=== PATIENT | female | born 1935 | race Caucasian/White ===

== ENCOUNTER → 2016-08-30 | Outpatient (CLI) | payer MEDICARE, BC ==
[~2016-08-30] MED LIST: ACET500C46 PO; CALC-586 PO; CARV3.12 PO; CHOL200035 PO; GABA-338 PO; HYDR-3989 PO; LEVO100T81 PO; LISI-625 PO; MAGN400C PO; MULT-806 PO; OMEG300C PO; ONDA8TAB PO; WARF1TAB6 PO
[2016-08-30 15:06] LABS: BASOPHILS % (AUTO) 0.5 % (0-2); EOSINOPHILS # (AUTO) 0.1 T/MM3 (0-0.5); EOSINOPHILS % (AUTO) 2.1 % (0-4); HCT - HEMATOCRIT 43.6 % (36-46); HGB - HEMOGLOBIN 14.5 GM/DL (12-16); IMMATURE GRANULOCYTE # (AUTO) 0.01 T/MM3 (0.00-0.03); IMMATURE GRANULOCYTE % (AUTO) 0.2 % (0.0-0.5); LYMPHOCYTES # (AUTO) 1.9 T/MM3 (1-4.8); LYMPHOCYTES % (AUTO) 29.1 % (23-45); MEAN CORPUSCULAR HGB 30.2 UUG (26-34); MEAN CORPUSCULAR HGB CONC(MCHC 33.3 GM/DL (31-37); MEAN CORPUSCULAR VOLUME 90.8 UM3 (80-100); MONOCYTES # (AUTO) 0.5 T/MM3 (0-0.8); MONOCYTES % (AUTO) 7.4 % (0-9.0); NEUTROPHILS % (AUTO) 60.7 % (33-66); WBC - WHITE BLOOD COUNT 6.6 T/MM3 (4.5-11.0)
[2016-08-30 15:11] LABS: ALBUMIN 4.2 G/DL (3.5-5.0); ALBUMIN/GLOBULIN RATIO 1.4 RATIO (1.1-2.2); ALKALINE PHOSPHATASE 68 U/L (38-126); ALT (SGPT) 29 U/L (9-52); AST (SGOT) 22 U/L (14-36); BUN/CREATININE RATIO 23 RATIO (6-26); CALCIUM 9.8 MG/DL (8.4-10.2); CHLORIDE 104 MEQ/L (98-107); CO2 - CARBON DIOXIDE 28 MEQ/L (22-30); CREATININE 1.2 MG/DL (0.7-1.2); GLOMERULAR FILTRATION RATE 43; GLUCOSE 127 MG/DL (65-110); LDH 437 U/L (313-618); MAGNESIUM 2.2 MG/DL (1.6-2.3); TOTAL PROTEIN 7.3 G/DL (6.3-8.2)
[2016-08-30 15:26] LABS: ANION GAP 12 MEQ/L (5-15); POTASSIUM 3.8 MEQ/L (3.6-5); SODIUM 144 MEQ/L (134-144)
--- NOTE | 2016-08-30 15:58 | DI ---
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 There is no pleural effusion or pneumothorax. Left pacemaker and right IJ port The heart size, mediastinal contours and pulmonary vascularity are stable. IMPRESSION: No acute cardiopulmonary disease. No radiographic evidence of pulmonary metastatic disease. .
== END ==
LOC: IMA 14:38
PROVIDERS: ATTEND Internal Medicine Hematology & Oncology
DX: C34.90 Malignant neoplasm of unspecified part of unspecified bronchus or lung (principal); C77.5 Secondary and unspecified malignant neoplasm of intrapelvic lymph nodes; R91.1 Solitary pulmonary nodule; Z86.711 Personal history of pulmonary embolism
CPT/HCPCS: 36415; 80053; 82378; 83615; 83735; 85025